=== PATIENT | male | born 1935 | race Caucasian/White ===

== ENCOUNTER 2021-11-02 12:15 | Emergency (ER) | payer MEDICARE, BC ==
[~2021-11-02] VITALS: Ht 180.3 cm; Wt 77.1 kg
[2021-11-02] MEDS ORDERED: LACT10SO3 PO (12:35)
[2021-11-02] MEDS ORDERED: ALLO100T PO (12:35)
[2021-11-02] MEDS ORDERED: MIDO10TA PO (12:35)
[2021-11-02] MEDS ORDERED: NEOM500T PO (12:36)
[2021-11-02] MEDS ORDERED: SIMV-46 PO (12:36)
[2021-11-02] MEDS ORDERED: RIFA550T PO (12:37)
[2021-11-02] MEDS ORDERED: [UNRECOGNIZED DRUG - CODE] MC (12:37)
[2021-11-02] MEDS ORDERED: FURO-151 PO (12:38)
[2021-11-02] MEDS ORDERED: POLY17PO4 PO (12:38)
[2021-11-02] MEDS ORDERED: SPIR50TA PO (12:38)
[2021-11-02] MEDS ORDERED: LEVO25TA9 PO (12:39)
[2021-11-02] MEDS ORDERED: LACTULOSE 20 G/30 ML LIQUID UDC PR ONE (13:15)
[2021-11-02 13:18] LABS: HEMATOCRIT 27.1 % (36.7-47.1); MEAN CORPUSCULAR HEMOGLOBIN 38.2 uug (23.8-33.4); MEAN CORPUSCULAR VOLUME 107.4 fL (73.0-96.2); PLATELET COUNT (AUTO) 101 K/uL (152-348)
[2021-11-02 13:24] LABS: CARBON DIOXIDE 31 mmol/L (21-32); CHLORIDE 99 mmol/L (98-107); CREATININE 1.4 mg/dL (0.6-1.3); GLUCOSE 142 mg/dL (74-106); POTASSIUM 4.2 mmol/L (3.5-5.1); UREA NITROGEN, BLOOD 31 mg/dL (7-18)
[2021-11-02 13:44] LABS: ALANINE AMINOTRANSFERASE 54 U/L (16-63); ALKALINE PHOSPHATASE 176 U/L (50-136); ASPARTATE AMINOTRANSFERASE 81 U/L (15-37); BILIRUBIN,DIRECT 0.7 mg/dL (0.0-0.2)
[2021-11-02 13:55] LABS: THYROID STIMULATING HORMONE 2.237 mIU/mL (0.358-3.740)
[2021-11-02] MEDS ORDERED: [UNRECOGNIZED DRUG - OTHER] PR ONE (14:00)
[2021-11-02] MEDS ORDERED: LACTULOSE 200 GM PR ONE (14:00)
[2021-11-02 14:19] LABS: *BILIRUBIN,URIN NEGATIVE (NEGATIVE); *CLARITY,URINE CLEAR (CLEAR); *COLOR,URINE YELLOW (YELLOW); *KETONES,URINE NEGATIVE (NEGATIVE); *UROBILINOGEN,URINE 0.2 E.U./dl (NORMAL); LEUKOCYTE ESTERASE ,URINE 1+ (NEGATIVE); NITRITE, URINE NEGATIVE (NEGATIVE); PH,URINE 6.5 (5.0-8.0); UGLUCOSE NEGATIVE (NEGATIVE)
[2021-11-02 14:22] LABS: *BLOOD, URINE TRACE (NEGATIVE)
--- NOTE | 2021-11-02 14:45 | NUR ---
last 2 B/P's 83/51 and 72/. 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
[2021-11-02] MEDS ORDERED: ONDANSETRON 4 MG/2 ML VIAL IV PRN (15:15)
[2021-11-02] MEDS ORDERED: CEFTRIAXONE 1 G in IV DEXTROSE 5% 50 ML IV SCH (15:15)
[2021-11-02] MEDS ORDERED: Z GUARD REMEDY PASTE 57 GM TUBE TOP PRN (15:15)
--- NOTE | 2021-11-02 15:20 | NUR ---
Gave pt lactulose enema, approx 100ml instilled, indwelled approx 45 minutes. No major change in MS.
[2021-11-02] MEDS ORDERED: CEFTRIAXONE /D5W 50ML IVPB **ER PYXIS IV ONE (16:48)
--- NOTE | 2021-11-02 18:20 | NUR ---
left 2nd message for Devora .
--- NOTE | 2021-11-02 19:01 | NUR ---
Spoke with Devora at [facility], Dr. Sonali castro MD. Pt going to "[address]" bed # 6381. Gave report tto Devora. [facility], [address], [address] [place] [address]. Transport will be by [facility], ETA 2014 to 2029.
--- NOTE | 2021-11-02 19:10 | NUR ---
RECRIEVED REPORT FROM BRIE PRABHAKAR. PT NOTED TO BE ASLEEP IN BED, NO LABORED BREATHING, AFEBRILE. DAUGJTER AT BEDSIDE.
[2021-11-02 20:15] LABS: RBC,URINE 0-3 /HPF (0-3); WBC,URINE 20-50 /HPF (0-3)
[2021-11-02 20:16] LABS: BACTERIA,URINE FEW /HPF (NONE SEEN); SQUAMOUS EPITHELIAL CELL,UR FEW /HPF (NONE SEEN)
--- NOTE | 2021-11-02 20:30 | NUR ---
Kingsley from [facility] stated to call nurse [phone] for updates in about 10 minutes.
--- NOTE | 2021-11-02 20:41 | NUR ---
[facility] [address] AT BEDSIDE TO TRANSPORT PT.
--- NOTE | 2021-11-02 20:59 | NUR ---
Patient Tranfers to outside Facility Physician: DR. POTTER Location:[facility]
[2021-11-03] MEDS ORDERED: FAMOTIDINE 20 MG TABLET PO SCH (09:00)
== END 2021-11-02 19:55 | disposition short-term general hospital (02) ==
LOC: ER 12:15
DX: K72.90 Hepatic failure, unspecified without coma (principal); R00.1 Bradycardia, unspecified; I35.0 Nonrheumatic aortic (valve) stenosis; Z79.899 Other long term (current) drug therapy; I44.7 Left bundle-branch block, unspecified; Z20.822 Contact with and (suspected) exposure to COVID-19; D69.6 Thrombocytopenia, unspecified
CPT/HCPCS: 36415; 70450; 71045; 80048; 80076; 81001; 82140; 83605; 83880; 84145; 84443; 84484 ×2; 85025; 85730; 87040 ×2; 87086; 87426; 93005; 93307; 96365; 99285; J0696; 70030-TC; A4217; A4663; C1758